=== PATIENT | male | born 1985 | race Hispanic/Latino ===

== ENCOUNTER 2021-05-25 12:41 | Day surgery (SDC) | payer BC ==
[2021-05-22 15:12] VITALS: BP 146/84
[~2021-05-25] VITALS: Ht 193 cm; Wt 195.3 kg
[2021-05-25] VITALS (17 sets, daily range): BP systolic 131–156; BP diastolic 77–94
[~2021-05-25 12:41] MED LIST: IBUP-2070 PO; TAMS-1 PO; TRAM50TA4 PO
[2021-05-25] MEDS ORDERED: LACTATED RINGERS 1000ML 1,000 ML IV ONE (13:07)
[2021-05-25] MEDS ORDERED: CEFTRIAXONE 1G VIAL ONE (13:39)
[2021-05-25] MEDS ORDERED: IOHEXOL-350 50ML VIAL IV ONE (15:52)
[2021-05-25] MEDS ORDERED: PROPOFOL 10 MG/ML 20ML VIAL IV ONE (16:12)
[2021-05-25] MEDS ORDERED: FENTANYL CITRATE PF 50 MCG/1 ML 2ML VIAL ONE (16:12)
[2021-05-25] MEDS ORDERED: SUCCINYLCHOLINE 200MG/10ML SYR ONE (16:12)
[2021-05-25] MEDS ORDERED: LIDOCAINE PF 100MG/5ML (2%) SYRINGE 5ML ONE (16:12)
[2021-05-25] MEDS ORDERED: ROCURONIUM 10MG/1ML SYR 10 MG/ML ML ONE (16:12)
[2021-05-25] MEDS ORDERED: SUGAMMADEX SODIUM 200 MG/2 ML VIAL IV ONE (16:55)
[2021-05-25] MEDS ORDERED: MEPERIDINE-PF 25 MG/ML SYG ONE (17:16)
[2021-05-25] MEDS ORDERED: PHENAZOPYRIDINE HCL 200 MG TABLET ONE (17:47)
== END 2021-05-25 18:50 | disposition home or self-care (01) ==
LOC: DAH 12:41
PROVIDERS: ATTEND Urology
DX: N13.2 Hydronephrosis with renal and ureteral calculous obstruction (principal); E66.01 Morbid (severe) obesity due to excess calories; Z79.899 Other long term (current) drug therapy; Z20.822 Contact with and (suspected) exposure to COVID-19
CPT/HCPCS: 52332; 74420; 87635; A4215; A4221; A4222; A4223; A4344; A4358; A4510; A4600; A4663; A5113; C1758; C1769 ×2; C2617; C9803; J0330; J0696; J2001; J2175; J2704; J3010; J7120; Q9967